=== PATIENT | female | born 1995 | race Caucasian/White ===

== ENCOUNTER → 2021-01-16 | Outpatient (CLI) | payer OTHER ==
[~2021-01-16] MED LIST: COLACE 100MG C100 MG PO; FERROUS SULFAT325 M2 PO; IBUPROFEN600 MG PO; LORTAB 5-325 M1 EACH PO; NORCO 10-325 T1 EACH PO; PRAMET FA TAB1 EA PO; VALTREX 500 MG500 MG PO
== END ==
LOC: HEART CORB 12-19 13:00
DX: R07.2 Precordial pain (principal); Z87.898 Personal history of other specified conditions; I07.1 Rheumatic tricuspid insufficiency
CPT/HCPCS: 93306